=== PATIENT | male | born 1925 | race Caucasian/White ===

== ENCOUNTER 2016-12-10 10:24 | Outpatient (CLI) | payer MEDICARE, OTHER ==
[2014-08-19 04:52] VITALS: BP 133/49
[2016-12-10 10:43] LABS: BASOPHILS % 0.3 (0.0-1.5); EOSINOPHILS % 8.6 % (0.0-6.8); LYMPHOCYTES # 1.4 # k/uL (0.6-4.0); MEAN CORPUSCULAR HEMOGLOBIN 36.9 pg (28.0-34.0); MONOCYTES # 0.4 # k/uL (0.0-0.9); MONOCYTES % 4.5 % (0.0-11.0); NEUTROPHILS # 5.8 # k/uL (1.4-7.7)
[2016-12-10 11:11] LABS: eGFR (African) 38; eGFR (Non-African) 32
== END 2016-12-10 10:25 ==
LOC: LAB 10:24
PROVIDERS: ATTEND Internal Medicine Nephrology
DX: N18.9 Chronic kidney disease, unspecified (principal); I50.9 Heart failure, unspecified
CPT/HCPCS: 36415; 80053; 85025

== ENCOUNTER 2016-12-14 14:18 | Outpatient (CLI) | payer MEDICARE, OTHER ==
[2014-08-19 04:52] VITALS: BP 133/49
== END 2016-12-14 14:20 ==
LOC: NEPHRO 14:18
PROVIDERS: ATTEND Internal Medicine Nephrology
DX: N18.9 Chronic kidney disease, unspecified (principal); I50.9 Heart failure, unspecified; D63.1 Anemia in chronic kidney disease
CPT/HCPCS: G0463